=== PATIENT | male | born 1990 | race Hispanic/Latino ===

== ENCOUNTER 2018-07-21 18:02 | Emergency (ER) | payer SELFPAY ==
[2018-07-21] MEDS ORDERED: Ketorolac Tromethamine 30 MG/ML VIAL ONE (18:29)
== END 2018-07-21 18:46 | disposition home or self-care (01) ==
LOC: ERS 18:02
DX: M54.5 Low back pain (principal); F17.210 Nicotine dependence, cigarettes, uncomplicated
CPT/HCPCS: 96372; J1885

== ENCOUNTER 2018-12-01 20:00 | Emergency (ER) | payer SELFPAY ==
--- NOTE | 2018-12-01 21:49 | RAD ---
XR Chest Pa Lat STANDARD HISTORY: Cough. Chills. COMPARISON: None. FINDINGS: Heart size and mediastinum are within normal limits. The lungs are clear of infiltrates. No significant bony findings. IMPRESSION: No active intrathoracic disease.
[2018-12-01] MEDS ORDERED: Albuterol Sulfate 2.5 mg/3 ml Neb ONE (21:57)
== END 2018-12-01 22:46 | disposition home or self-care (01) ==
LOC: ERS 20:00
DX: J20.9 Acute bronchitis, unspecified (principal); F17.210 Nicotine dependence, cigarettes, uncomplicated
CPT/HCPCS: 71046; 94640; J7611

== ENCOUNTER 2022-11-29 08:05 | Emergency (ER) | payer SELFPAY ==
[2022-11-29 08:53] LABS: #Basophils 0.1 thou/uL (0.0-0.2); #Eosinphils 0.2 thou/uL (0.0-0.7); #Monocytes 0.8 thou/uL (0.11-0.59); #Neutrophils 6.4 thou/uL (1.40-6.50); %Basophils 0.6 % (0.0-1.0); %Lymphocytes 35.5 % (21.0-51.0); %Neutrophils 54.6 % (42.0-75.0); Hemoglobin 17.8 g/dL (14.0-18.0); Mean Corpuscular HGB CONC 35.6 g/dL (32.0-36.0); Mean Corpuscular Hemoglobin 30.7 pg (27.0-31.0); Mean Corpuscular Volume 86.4 fl (78.0-98.0); Mean Platelet Volume 9.1 fL (7.4-10.4); Platelet Count 319 10x3/uL (130-400); RBC Distribution Width 11.9 % (11.5-14.5); Red Blood Cell (RBC) Count 5.79 mill/uL (4.70-6.10); White Blood Cell (WBC) Count 11.7 10x3/uL (4.8-10.8)
[2022-11-29 09:11] LABS: INR-International Normal Ratio 0.8; Prothrombin Time 11.9 sec (12.0-14.7)
[2022-11-29 09:19] LABS: Troponin I Less than 0.010 ng/mL (< 0.028)
[2022-11-29 09:21] LABS: ALT (SGPT) 47 U/L (8-55); AST (SGOT) 36 U/L (5-34); Albumin 4.5 g/dL (3.5-5.0); Alkaline Phosphatase 109 U/L (40-110); Anion Gap 18 mmol/L (10-20); BUN (Urea Nitrogen) 15 mg/dL (8.9-20.6); Bilirubin, Total 0.7 mg/dL (0.2-1.2); Calc. Creatinine Clearance 0 mL/min (70-130); Calcium 9.7 mg/dL (7.8-10.44); Carbon Dioxide 16 mmol/L (22-29); Chloride 106 mmol/L (98-107); Estimated GFR 98; Globulin 3.6 g/dL (2.4-3.5); Glucose 112 mg/dL (70-105); Potassium 3.6 mmol/L (3.5-5.1); Protein, Total 8.1 g/dL (6.0-8.3); Sodium 136 mmol/L (136-145)
== END 2022-11-29 10:46 | disposition home or self-care (01) ==
LOC: ERS 08:05
DX: R53.1 Weakness (principal)
CPT/HCPCS: 36415; 70450; 71045; 80053; 84484; 85025; 85610; 85730; 93005

== ENCOUNTER 2022-12-06 20:02 | Emergency (ER) | payer SELFPAY ==
[2022-12-06 20:59] LABS: #Eosinphils 0.1 thou/uL (0.0-0.7); #Neutrophils 8.5 thou/uL (1.40-6.50); %Basophils 0.3 % (0.0-1.0); %Eosinophils 0.6 % (0.0-10.0); %Lymphocytes 23.9 % (21.0-51.0); %Monocytes 7.7 % (0.0-10.0); %Neutrophils 67.2 % (42.0-75.0); Hematocrit 49.9 % (42.0-52.0); Hemoglobin 17.5 g/dL (14.0-18.0); Mean Corpuscular HGB CONC 35.1 g/dL (32.0-36.0); Mean Corpuscular Hemoglobin 30.2 pg (27.0-31.0); Mean Corpuscular Volume 86.2 fl (78.0-98.0); Mean Platelet Volume 8.8 fL (7.4-10.4); Platelet Count 328 10x3/uL (130-400); RBC Distribution Width 12.1 % (11.5-14.5); Red Blood Cell (RBC) Count 5.79 mill/uL (4.70-6.10); White Blood Cell (WBC) Count 12.7 10x3/uL (4.8-10.8)
[2022-12-06 21:24] LABS: Troponin I Less than 0.010 ng/mL (< 0.028)
[2022-12-06 21:51] LABS: ALT (SGPT) 40 U/L (8-55); AST (SGOT) 30 U/L (5-34); Albumin 4.8 g/dL (3.5-5.0); Alkaline Phosphatase 101 U/L (40-110); Anion Gap 21 mmol/L (10-20); BUN (Urea Nitrogen) 6 mg/dL (8.9-20.6); Calc. Creatinine Clearance 0 mL/min (70-130); Calcium 9.8 mg/dL (7.8-10.44); Carbon Dioxide 16 mmol/L (22-29); Chloride 104 mmol/L (98-107); Estimated GFR 118; Globulin 3.7 g/dL (2.4-3.5); Glucose 109 mg/dL (70-105); Potassium 3.9 mmol/L (3.5-5.1); Protein, Total 8.5 g/dL (6.0-8.3); Sodium 137 mmol/L (136-145)
[2022-12-06 22:25] LABS: Bacteria/HPF None Seen HPF (None Seen); Bilirubin Negative (Negative); Blood, Urine Negative (Negative); CAUTI Indications for Culture Pelvic or flank pain; Clarity Clear (Clear); Glucose, Urine (Dipstick) Normal (Negative); Ketone, Urine Negative (Negative); Leukocyte Negative Leu/uL (Negative); Nitrite Negative (Negative); Protein, Urine (Dipstick) 10 mg/dL (Neg-Trace); RBC/HPF 0-3 HPF (0-3); Specific Gravity, Urine 1.021 (1.002-1.036); Squamous Epithelial 0-3 HPF (0-3); Urobilinogen Normal mg/dL (Less than 2); WBC/HPF 0-3 HPF (0-3)
[2022-12-06 22:29] LABS: Urine Culture Reflex No No
[2022-12-06 22:33] LABS: Amphetamine Not Detected (NotDetected); Barbiturates Screen Not Detected (NotDetected); Benzodiazepine Screen Not Detected (NotDetected); Cocaine Metabolite Screen Detected (NotDetected); Methadone Not Detected (NotDetected); Methamphetamine Not Detected (NotDetected); Opiate Screen Not Detected (NotDetected); Oxycodone Screen Not Detected (NotDetected); Phencyclidine (PCP) Not Detected (NotDetected); THC/Cannabinoid Screen Detected (NotDetected); Tricyclic Screen Not Detected (NotDetected)
== END 2022-12-06 22:58 | disposition home or self-care (01) ==
LOC: ERS 20:02
DX: R42 Dizziness and giddiness (principal)
CPT/HCPCS: 71045; 80053; 80306; 81001; 83880; 84484; 85025; 85379; 93005; 96360